=== PATIENT | male | born 1965 | race Caucasian/White ===

== ENCOUNTER 2019-04-02 23:00 | Emergency (ER) | payer SELFPAY ==
[~2019-04-02] VITALS: Ht 172.7 cm; Wt 131.5 kg
[2019-04-02 23:00] VITALS: Ht 172.7 cm; Wt 131.5 kg
[2019-04-03 03:40] VITALS: BP 0/0
== END 2019-04-03 03:40 | disposition expired ==
LOC: ED 23:00
DX: I46.9 Cardiac arrest, cause unspecified (principal); I10 Essential (primary) hypertension; Z11.9 Encounter for screening for infectious and parasitic diseases, unspecified; E78.00 Pure hypercholesterolemia, unspecified; M19.90 Unspecified osteoarthritis, unspecified site; Z98.890 Other specified postprocedural states; Z88.8 Allergy status to other drugs, medicaments and biological substances
CPT/HCPCS: J7030